=== PATIENT | male | born 2000 | race Caucasian/White ===

== ENCOUNTER 2022-10-21 04:10 | Emergency (ER) | payer OTHER, BC ==
[2022-10-21] MEDS ORDERED: Ondansetron PF 4 MG/2 ML Vial ONE (04:16)
[2022-10-21] MEDS ORDERED: Ketorolac Tromethamine 30 MG/ML VIAL ONE (04:16)
[2022-10-21] MEDS ORDERED: HYDROcodone/Acetaminophen 10/325 mg Tablet ONE (08:08)
== END 2022-10-21 08:54 | disposition home or self-care (01) ==
LOC: ERS 04:10
DX: S32.010A Wedge compression fracture of first lumbar vertebra, initial encounter for closed fracture (principal); S32.020A Wedge compression fracture of second lumbar vertebra, initial encounter for closed fracture; W22.09XA Striking against other stationary object, initial encounter
CPT/HCPCS: 72128; 72131; 96374; 96375; J1885; J2405